=== PATIENT | female | born 1985 | race African-American/Black ===

== ENCOUNTER 2017-03-24 21:35 | Emergency (ER) | payer BC, OTHER ==
[~2017-03-24] VITALS: Ht 157.5 cm; Wt 52.2 kg
[~2017-03-24 21:35] MED LIST: PREN1TAB81 PO
[2017-03-24] MEDS ORDERED: predniSONE 20 MG TABLET PO ONE (22:45)
[2017-03-24] MEDS ORDERED: predniSONE 10 MG TABLET ONE (23:01)
--- NOTE | 2017-03-24 23:39 | NUR ---
Patient discharged to home in stable conditon. Written and verbal after care instructions given. Patient verbalizes understanding of instructions.
== END 2017-03-24 23:57 | disposition home or self-care (01) ==
LOC: ER 21:36
DX: O26.891 Other specified pregnancy related conditions, first trimester (principal); L50.9 Urticaria, unspecified; M25.50 Pain in unspecified joint; Z3A.01 Less than 8 weeks gestation of pregnancy
CPT/HCPCS: 99283; A4663; J7512

== ENCOUNTER 2017-03-26 10:18 | Emergency (ER) | payer BC, OTHER ==
[~2017-03-26] VITALS: Ht 157.5 cm; Wt 52.2 kg
[2017-03-26] MEDS ORDERED: [UNRECOGNIZED DRUG - REMARK] (10:31)
--- NOTE | 2017-03-26 10:42 | NUR ---
32 year old female in room 4A, being evaluated by MD at this time. c/o allergic reaction, lip swelling and tingling x 5 days, speaks clearly, no airway obstruction noted. Reports 7wks . Proceed w/ orderes.
[2017-03-26] MEDS ORDERED: FAMOTIDINE 20 MG TABLET PO ONE (11:00)
[2017-03-26] MEDS ORDERED: diphenhydrAMINE 50 MG/1 ML VIAL IM ONE (11:00)
[2017-03-26] MEDS ORDERED: diphenhydrAMINE 50 MG/1 ML VIAL ONE (11:06)
[2017-03-26] MEDS ORDERED: FAMOTIDINE 20 MG TABLET ONE (11:06)
--- NOTE | 2017-03-26 11:58 | NUR ---
Pt reports no change after receiving madications as ordered, MD aware, new order received.
[2017-03-26] MEDS ORDERED: EPINEPHRINE 1 MG/1 ML AMP SQ ONE (12:00)
[2017-03-26] MEDS ORDERED: EPINEPHRINE 1 MG/1 ML AMP ONE (12:14)
--- NOTE | 2017-03-26 14:02 | NUR ---
Pt reports alleviation of the symptoms, noted decrease in lip swelling. A/O x 4, nad noted at this time. Patient discharged home in stable conditon. Written and verbal after care instructions given. Patient verbalizes understanding of instructions.
[2017-03-26 14:04] VITALS: BP 105/52
== END 2017-03-26 14:05 | disposition home or self-care (01) ==
LOC: ER 10:24
DX: O99.711 Diseases of the skin and subcutaneous tissue complicating pregnancy, first trimester (principal); T78.3XXA Angioneurotic edema, initial encounter; Z3A.01 Less than 8 weeks gestation of pregnancy
CPT/HCPCS: A4663; J0171; J1200